=== PATIENT | male | born 1985 | race Caucasian/White ===

== ENCOUNTER 2022-09-28 18:52 | Day surgery (SDC) | payer BC, OTHER ==
[2022-09-28] MEDS ORDERED: Sodium Chloride 0.9% 10 ML Syringe FLUSH PRN (19:25)
[2022-09-28] MEDS ORDERED: Ondansetron 4 MG/2 ML SDV IVPUSH ONE (19:25)
[2022-09-28] MEDS ORDERED: HYDROmorphone 1 MG/ML Syringe IVPUSH STA (19:25)
[2022-09-28] MEDS ORDERED: Iopamidol 612 MG/ML 100 ML Bottle IVPUSH ONE (19:28)
[2022-09-28] MEDS ORDERED: Iopamidol 612 MG/ML 50 ML SDV IVPUSH ONE (19:28)
[2022-09-28] MEDS ORDERED: Sodium Chloride 0.9% 1,000 ML IV SCH (19:30)
[2022-09-28] MEDS ORDERED: Ondansetron 4 MG/2 ML SDV IVPUSH PRN (19:30)
[2022-09-28] MEDS ORDERED: cefOXitin 2 GM in Sodium Chloride 0.9% 50 ML IV ONE (20:36)
[2022-09-28] MEDS ORDERED: Sodium Chloride 0.9% 1,000 ML IV ONE (20:38)
[2022-09-28] MEDS: HYDROmorphone 0.5 MG/0.5 ML Syringe IVPUSH PRN (21:51)
[2022-09-29] MEDS: HYDROmorphone 0.5 MG/0.5 ML Syringe IVPUSH PRN (01:46)
[2022-09-29] MEDS ORDERED: Cefepime 2 GM in Sodium Chloride 0.9% 50 ML IV ONE (05:00)
[2022-09-29] MEDS ORDERED: Lactated Ringers 1,000 ML ONE (10:08)
[2022-09-29] MEDS ORDERED: Propofol 200 MG/20 ML SDV ONE (10:15)
[2022-09-29] MEDS ORDERED: Ondansetron 4 MG/2 ML SDV ONE (10:15)
[2022-09-29] MEDS ORDERED: Midazolam 1 MG/ML 2 ML SDV ONE (10:15)
[2022-09-29] MEDS ORDERED: Rocuronium 50 MG/5 ML Vial ONE (10:15)
[2022-09-29] MEDS ORDERED: Lidocaine 1% 5 ML VIAL ONE (10:15)
[2022-09-29] MEDS ORDERED: fentaNYL 100 MCG/2 ML SDV ONE ×2 (10:20→12:33)
[2022-09-29] MEDS ORDERED: Bupivacaine 0.5%/EPINEPHrine 1:200,000 50 ML MDV ONE (10:46)
[2022-09-29] MEDS ORDERED: Lidocaine 1% with EPINEPHrine 1:100,000 10 ML MDV ONE (10:46)
[2022-09-29] MEDS ORDERED: Dexamethasone 4 MG/ML 5 ML MDV ONE (12:03)
[2022-09-29] MEDS ORDERED: Ondansetron 4 MG/2 ML SDV IVPUSH PRN (12:10)
[2022-09-29] MEDS ORDERED: HYDROmorphone 0.5 MG/0.5 ML Syringe IVPUSH PRN (12:10)
[2022-09-29] MEDS ORDERED: fentaNYL 100 MCG/2 ML SDV IVPUSH PRN (12:10)
[2022-09-29] MEDS ORDERED: Neostigmine Methylsulfate 10 MG/10 ML MDV ONE (12:12)
[2022-09-29] MEDS ORDERED: Ketorolac 15 MG/ML SDV ONE (12:33)
[2022-09-29] MEDS ORDERED: oxyCODONE 5 MG Tab PO SCH (14:07)
== END 2022-09-29 14:15 | disposition home or self-care (01) ==
LOC: JD.ED 18:52 → JD.SDS 09-29 05:15
PROVIDERS: ATTEND Surgery
DX: R10.31 Right lower quadrant pain (principal); K37 Unspecified appendicitis
CPT/HCPCS: 36415; 74177; 80053; 81001; 83690; 85025; 86140; J0692; J1100; J1170; J1885; J2250; J2405; J2704; J2710; J3010; J3490; J7030; J7120; Q9967; 00840; 99140